=== PATIENT | female | born 1960 | race Caucasian/White ===

== ENCOUNTER 2021-12-07 16:28 | Outpatient (CLI) | payer MEDICARE, SELFPAY ==
--- NOTE | ~2021-12-07 | MM_ITS ---
EXAMINATION: MM screening [facility] BI w marlen HISTORY: Screening TECHNIQUE: Craniocaudal and mediolateral oblique 3-D tomosynthesis images were obtained and synthetic 2-D images were generated. CAD analysis was submitted and interpreted. COMPARISON: Comparison to multiple prior studies sequentially, with oldest reviewed study dated 12/2013. BREAST PARENCHYMAL COMPOSITION: There are scattered areas of fibroglandular density.. FINDINGS: There is no evidence of suspicious mass, calcification, or architectural distortion to sugg est malignancy in either breast. There has been no suspicious interval change. IMPRESSION: 1. No mammographic evidence of malignancy. 2. Recommend routine screening mammography in one year. BI-RADS Category 1: Negative Reviewed, dictated and finalized at location A. L DEL[employer]IVER
== END 2021-12-07 16:29 | disposition home or self-care (01) ==
LOC: ANHIMG 16:29
PROVIDERS: PCP Internal Medicine; Visit Provider Obstetrics & Gynecology
DX: Z12.31 Encounter for screening mammogram for malignant neoplasm of breast (principal)
CPT/HCPCS: 77063; 77067

== ENCOUNTER 2023-08-16 12:17 | Outpatient (CLI) | payer MEDICARE, SELFPAY ==
[2023-08-16 12:52] LABS: Basophils Percent Auto 0.3 % (0.2-1.2); Eosinophils Absolute Auto 0.1 K/mm3 (0-0.3); Eosinophils Percent Auto 0.8 % (0-4.4); Hematocrit 37.7 % (37.0-47.0); Hemoglobin 11.8 g/dL (12.0-15.0); Immature Granulocyte Absolute 0.09 K/mm3 (0.00-0.031); Immature Granulocyte Percent A 0.6 % (0-0.5); Lymphocytes Absolute Auto 1.23 K/mm3 (0.9-3.2); Lymphocytes Percent Auto 7.7 % (18.3-44.2); Mean Corpuscular HGB Conc 31.3 g/dl (32-36); Mean Corpuscular Volume 92.6 fl (80-100); Mean Platelet Volume 10.9 fl (7.4-10.4); Monocytes Absolute Auto 1.1 K/mm3 (0.1-0.6); Monocytes Percent Auto 7.2 % (2.6-8.5); Neutrophils Absolute Auto 13.3 K/mm3 (1.3-6.7); Neutrophils Percent Auto 83.4 % (45.5-73.1); Platelet Count Result 341 k/mm3 (150-375); Red Blood Count 4.07 M/mm3 (4.2-5.4); Red Cell Distribution Width 12.9 % (11.5-14.5); White Blood Count 15.9 K/mm3 (4.5-10.0)
[2023-08-16 13:01] LABS: Alanine Aminotransferase 13 U/L (6-35); Albumin Level 4.2 g/dL (3.5-5.1); Alkaline Phosphatase 91 U/L (38-126); Anion Gap 8 mmol/L (8-16); Aspartate Amino Transferase 16 U/L (14-36); Bilirubin,Total 0.6 mg/dL (0.2-1.3); Blood Urea Nitrogen 21 mg/dL (7-17); Calcium 9.2 mg/dL (8.4-10.2); Carbon Dioxide 30 mmol/L (22-30); Chloride 98 mmol/L (98-107); Estimated Glomerular Filt Rate > 60; Glucose 108 mg/dL (65-110); Sodium 136 mmol/L (137-145)
[2023-08-16 14:10] LABS: Erythrocyte Sedimentation Rate 77 mm/hr (0-20)
== END 2023-08-16 12:18 | disposition home or self-care (01) ==
PROVIDERS: PCP Nurse Practitioner Family; Visit Provider Nurse Practitioner Family
DX: L02.91 Cutaneous abscess, unspecified (principal)
CPT/HCPCS: 36415; 80053; 85025; 85652

== ENCOUNTER → 2024-01-23 11:31 | Outpatient (REF) | payer MEDICARE, SELFPAY | LOC: ANHLAB 11:31 | PROVIDERS: PCP Nurse Practitioner Family; Visit Provider Plastic Surgery | DX: C44.519 Basal cell carcinoma of skin of other part of trunk (principal) | CPT/HCPCS: 88305 ==

== ENCOUNTER 2024-03-09 15:14 | Emergency (ER) | payer MEDICARE, SELFPAY ==
--- NOTE | ~2024-03-09 | XR_ITS ---
EXAMINATION: XR chest 2V 03/09/2024 15:46 INDICATION: Productive cough PROCEDURE: 2 view chest COMPARISON: 09/20/2013 FINDINGS: The lungs are clear. The cardiomediastinal silhouette is within normal limits. There are no pleural effusions. There is no pneumothorax suspected. IMPRESSION: 1: NO ACUTE CARDIOPULMONARY DISEASE. Reviewed, dictated and finalized at location B.
--- NOTE | 2024-03-09 15:21 | ED.URI ---
HPI - URI/Sore Throat General Chief Complaint: Upper Respiratory Infection Stated Complaint: Sore Throat and Cough Time Seen by Provider: 03/09/24 15:24 Source: patient, RN notes reviewed and old records reviewed Mode of arrival: ambulatory Limitations: no limitations History of Present Illness HPI Narrative: 63-year-old female presents to the [facility] with a 4 day history of sore throat, cough and ear pressure. Had a negative strep in her primary care's office yesterday. Has been taking Mucinex per primary care. Patient reports she is concern for pneumonia. Reports a productive cough. Denies fevers, chest pain Related Data Home Medications Medication Instructions Recorded Confirmed cholecalciferol (vitamin D3) 25 25 mcg PO DAILY 04/26/21 03/09/24 mcg (1,000 unit) tablet Allergies Allergy/AdvReac Type Severity Reaction Status Date / Time latex Allergy Unknown Hives Verified 03/09/24 15:26 Review of Systems Review of Systems: All systems reviewed & are unremarkable except as noted in HPI and below Constitutional: Constitutional: Reports no additional constitutional complaints Eyes: Eyes: Reports no additional eye complaints ENT: Reports as per HPI and Reports sore throat Cardiovascular: Cardiovascular: Reports no additional cardiovascular complaints, Denies chest pain and Denies dyspnea Respiratory: Respiratory: Reports as per HPI, Denies chest congestion, Reports cough and Denies dyspnea Gastrointestinal: Gastrointestinal: Reports no additional gastrointestinal complaints, Denies abdominal pain, Denies nausea and Denies vomiting Musculoskeletal: Musculoskeletal: Reports no additional musculoskeletal complaints Integumentary/Breasts: Skin/Breast: Reports system reviewed and no additional complaints, except as docu Neurologic: Reports system reviewed and no additional complaints, except as documented Psychiatric: Psychiatric: Reports no additional psychiatric complaints Allergic/Immunologic: Allergic/Immunologic: Reports no additional allergic/immunologic complaints [facility] Past Medical History Medical History Acid reflux Asthma Basal cell carcinoma Hypertension Hypothyroidism Migraines occasional Vaginal delivery x2 Surgical History Surgical History History of back surgery x2, back fusion S/P laparoscopic surgery [place] teeth extracted Family History Family History Mother Hypertension Family history of osteoarthritis Family history of diabetes mellitus in first degree relative Diabetes mellitus Sibling Family history of diabetes mellitus in first degree relative Father Family history of lung cancer Grandparent Family history of malignant neoplasm of breast Social History Social History Smoking status: Never smoker Second hand tobacco smoke exposure: Yes Alcohol intake: never Substance use: never Substance use type: does not use Lack of Transportation: No Lack of Food: Never True Current Housing: I Have Housing Concerned About Future Housing: No Difficulty Paying Gas/Electric Bills: No Difficulty Paying for Meds: No Currently Unemployed: No Education: High School Diploma/GED Difficulty w/ Childcare or Family Care: No Comments At the time of my signature, I reviewed and agree with the nursing past medical, surgical, social, and family history. There is no relevant family history pertinent to the patient complaint. Exam Const: General: cooperative, healthy appearing, comfortable, no acute distress, well developed, alert and well nourished Nutritional Appearance: well nourished and obese Orientation/consciousness: patient oriented x3 Limitations: no limitations HENMT: Head: normal to inspection Ears: hearing grossly normal
[2024-03-09 15:28] VITALS: BP 141/64; PULSE 76; RESP 16; TEMP 36.9; O2SAT 99
== END 2024-03-09 16:25 | disposition home or self-care (01) ==
PROVIDERS: Emergency Provider Nurse Practitioner; PCP Nurse Practitioner Family
DX: J06.9 Acute upper respiratory infection, unspecified (principal); J02.9 Acute pharyngitis, unspecified; R09.82 Postnasal drip; K21.9 Gastro-esophageal reflux disease without esophagitis; J45.909 Unspecified asthma, uncomplicated; I10 Essential (primary) hypertension; E03.9 Hypothyroidism, unspecified; Z85.828 Personal history of other malignant neoplasm of skin
CPT/HCPCS: 71046; 99213; G0463

== ENCOUNTER 2024-04-29 11:08 | Outpatient (CLI) | payer MEDICARE, SELFPAY ==
--- NOTE | 2024-04-29 11:29 | ECG_ITS ---
Test Date: 2024-04-29 11:44:51 Measurements Intervals [place] Rate: 63 P: 34 MA: 162 QRS: -3 QRSD: 97 T: -2 QT: 407 QTc: 418 Interpretive Statements SINUS RHYTHM VOLTAGE CRITERIA FOR LVH POOR R WAVE PROGRESSION , CONSIDER ANTERIOR INFARCTION BORDERLINE T WAVE ABNORMALITY- ANT/INF LEADS BASELINE ARTIFACT- I, II, III, AVR, AVL, AVF ABNORMAL ECG No previous ECG available for comparison Electronically Signed On 04-29-2024 11:59:07 CDT by Jcarlos Wood D.O.
[2024-04-29 12:33] LABS: Anion Gap 7 mmol/L (4-12); Blood Urea Nitrogen 22 mg/dL (7-17); Carbon Dioxide 31 mmol/L (22-30); Chloride 100 mmol/L (98-107); Estimated Glomerular Filt Rate > 60; Glucose 98 mg/dL (65-110); Potassium 4.1 mmol/L (3.4-5.0); Sodium 138 mmol/L (137-145)
== END 2024-04-29 11:09 | disposition home or self-care (01) ==
LOC: ANHSURGERY 11:15
PROVIDERS: Anesthesiology; PCP Nurse Practitioner Family; Visit Provider Plastic Surgery
DX: Z01.818 Encounter for other preprocedural examination (principal); Z79.899 Other long term (current) drug therapy; I10 Essential (primary) hypertension
CPT/HCPCS: 36415; 80048; 93005

== ENCOUNTER 2024-05-01 00:25 | Day surgery (SDC) | payer MEDICARE, SELFPAY ==
[2024-04-29 08:30] VITALS: BMI 41.5
--- NOTE | 2024-04-29 08:37 | PC.NURSE ---
Report to the Outpatient Waiting Room, entrance under the green pavilion located off [facility], at time _0615_ on date _[id number]_. Planned Procedure Time: _0815_. Time changes happen often and if your time is changed the preop area will call you the afternoon before. - You and your visitor will be asked to self-screen and do not enter if you have any COVID symptoms. - A mask is optional within the hospital at this time. - No food or drink from midnight until time of surgery Take the following medications with a SIP of water the morning of surgery: ___Levothyroxine. May use Sympicort and Flonase if needed. DO NOT STOP ANY OF YOUR OTHER PRESCRIPTION MEDICATIONS PRIOR TO SURGERY ?EXCEPT THE FOLLOWING Medications to discontinue per physician Vitamin D3 Date to take last dose____Stop now. Please no make-up, nail lithuanian, hairspray, perfume, deodorant, or body powder the day of surgery. No jewelry (including any body piercings) or valuables the day of surgery, leave them at home. Please take a shower or bath the night before, or the morning of, surgery with an antibacterial soap. Wear comfortable, loose fitting clothing. - Jewelry must be removed prior to entering the operating room. Rings and piercings that are not removed may be cut off. - The hospital will not accept responsibility for valuables. - Please leave all valuables, including medications, at home the day of surgery. If you are going home after surgery, a licensed driver manager must drive you home. - NO public transportation without another adult if you receive anesthesia. - We recommend that an adult stay with you for 24 hours following discharge. - We also recommend that you do not drive, make important decision, drink alcoholic beverages, or take any drugs that were not prescribed by your health care provider for at least 24 hours after your discharge time. Follow any additional instructions given to you from your surgeon. If you or anyone in your household have experienced Covid symptoms in the past week, please notify your surgeon or the nurse liaison at the phone number below for possible testing. Telephone instructions given to __Leeanna___and asked if any additional questions and then verbalized understanding. Patient advised to call surgeon office or pre surgery nurse liaison [phone] if any additional questions.
[2024-05-01 06:23] VITALS: BP 113/82; PULSE 80; RESP 16; TEMP 36.2; O2SAT 98; BMI 42.4
--- NOTE | 2024-05-01 06:40 | WPDHPUPDATE1 ---
History and Physical Update Update Date/Time: 05/01/24 06:40 Patient seen and examined in pre-operative holding area. No interval change in medical history or symptoms. Patient recalls previous discussion of benefits and alternatives to procedure. Continues to desire to proceed with excision of malignant lesion of trunk with frozen section, complex wound closure with possible adjacent tissue transfer. Reviewed procedure, post-op expectations and risks including but not limited to bleeding, infection, incomplete excision ,recurrence,undesireable cosmetic appearance, no change or worsening of symptoms. I discussed the possible use of assistants and their participation in the case. Patient stated understanding and signed the consent form wishing to proceed.
--- NOTE | 2024-05-01 06:40 | W.PM.PROC2 ---
Procedure Note - Detailed Date of Procedure 05/01/24 Pre-op Diagnosis basal cell carcinoma of skin Post-op Diagnosis Same Procedure Performed re-excision sternal basal cell Surgeon Kiara Salvador MD Informatics Manager estevan mcgarry pa-c Anesthesia MAC Description of Procedure INFORMED CONSENT: The patient was seen and examined and marked in the pre-op area.? The patient signed the consent form. PROCEDURE IN DETAIL:The patient taken back to OR on the stretcher in supine position. Time out performed with anesthesia, surgeon and staff agreeing on patient's name site and surgery to be performed SCDs were placed on the lower extremities and inflated. After anesthesia administered sedation I injected {20}cc 1%lido with epi and 0.5% marcaine plain at the operative site The chest was prepped and draped in sterile fashion I proceeded with making an incision around her previous scar and excision site with 6mm margins through skin and dermis then excising in subuctaneous plane with bovie cautery. This specimen was sent for permanent pathology. I took superior, inferior, left and right margins that were sent for frozen section. The diameter of excision with margins and resulting defect was [id number]. This defect extended onto and over bilateral breasts with exposed breast tissue. Primary closure would have resulted in synmastia and excess tension on the wound from pull of the breasts laterally. I irrigated with normal saline and hemostasis with bovie. When frozen sections were reported as clear, I proceeded with using bovie cautery to elevate full thickness skin flaps on the left and right side of the wound so this tissue would slide over the breast tissue creating bilateral advancement flaps. I sharply excised burrows triangles superiorly and inferiorly to remove dog ears and allow for advancement. These full thickness skin flaps were advanced and sutured down to sternum with 2-0 vicryl suture and thus recreating and sternal cleft between breasts. 2-0 vicryl was used for deep and dermal closure. 3-0 monocryl was used for subcuticular closure. The skin flaps appeared viable with good cap refill. A dressing of mastisol, steri-strips, 4x4, and a pressure dressing was applied. The patient was then awaken from anesthesia and transferred to the recovery room in stable condition.? Complications - none EBL- 2cc Disposition - home in stable conditions [facility] Billing Surgery - Charge Forward: Surgery Billing ([id number] [id number]) [id number] same for estevan modifier )
[2024-05-01] MEDS: LACTATED RINGERS 1,000 ML 30 ML IV CONT ×2 (07:05→09:58)
--- NOTE | 2024-05-01 07:40 | WPDANESEPPF ---
Anes - Initial Pre Proc Eval Procedure: Operation Date: 05/01/24 08:15 Proposed Procedures p Excision Malignant Lesion of Trunk with Frozen Section, Complex Wound Closure with Possible Adjacent Tissue Transfer - Kiara Salvador MD Date/Time: 05/01/24 07:40 Surgeon: Kiara Salvador MD Pre Op Diagnosis: basal cell carcinoma of skin Patient Data Age: 63 Gender: F Height: 1.7 m Weight: 122.8 kg Allergies Allergy/AdvReac Type Severity Reaction Status Date / Time latex Allergy Unknown Hives Verified 04/29/24 10:38 Home Medications Medication Instructions Recorded Confirmed Type cholecalciferol (vitamin D3) 25 25 mcg PO DAILY 04/26/21 04/29/24 History mcg (1,000 unit) tablet ibuprofen 800 mg tablet 800 mg PO TID PRN pain #90 tabs 05/19/22 04/29/24 Rx cyclobenzaprine 10 mg tablet 10 mg PO TID PRN muscle spasm #60 06/30/23 04/29/24 Rx tabs levothyroxine 75 mcg tablet See Rx Instructions .Route 09/13/23 04/29/24 Rx .COMPLEX #90 tabs losartan 50 mg-hydrochlorothiazide 1 tablet PO DAILY #90 tabs 09/13/23 04/29/24 Rx 12.5 mg tablet omeprazole 40 mg capsule,delayed See Rx Instructions .Route 03/05/24 04/29/24 Rx release .COMPLEX #90 caps dextromethorphan-guaifenesin 30 See Rx Instructions PO Q12H PRN 03/07/24 04/29/24 Rx mg-600 mg tablet extended cough #30 tabs [id number] hr (Mucinex DM) fluticasone propionate 50 2 spray intranasal DAILY PRN nasal 03/07/24 04/29/24 Rx mcg/actuation nasal congestion #16 grams spray,suspension (Allergy Relief (fluticasone)) budesonide-formoterol HFA 160 2 puff inhalation Q12H PRN Dyspnea 04/29/24 04/29/24 History mcg-4.5 mcg/actuation aerosol inhaler (Symbicort) Patient hx anesthesia problems: none Family hx anesthesia problems: none Results Review: All pre-operative results and documents have been reviewed as part of the pre-operative evaluation. [facility] Past Medical History Medical History Acid reflux Asthma Basal cell carcinoma Hypertension Hypothyroidism Migraines occasional Vaginal delivery x2 Surgical History Surgical History History of back surgery x2, back fusion S/P laparoscopic surgery [place] teeth extracted Family History Family History Mother Hypertension Family history of osteoarthritis Family history of diabetes mellitus in first degree relative Diabetes mellitus Sibling Family history of diabetes mellitus in first degree relative Father Family history of lung cancer Grandparent Family history of malignant neoplasm of breast Social History Social History Smoking status: Never smoker Second hand tobacco smoke exposure: Yes Alcohol intake: never Substance use: never Substance use type: does not use Lack of Transportation: No Lack of Food: Never True Current Housing: I Have Housing Concerned About Future Housing: No Difficulty Paying Gas/Electric Bills: No Difficulty Paying for Meds: No Currently Unemployed: No Education: High School Diploma/GED Difficulty w/ Childcare or Family Care: No Living arrangements: with family Spiritual care concerns: No Anes - Eval Final PreProcedure Day of Procedure 05/01/24 07:40 Patient weight: morbidly obese Heart: regular rate and rhythm Lungs: clear to auscultation Airway: Mallampati scale class II Neurological: alert and oriented Last oral intake: >/= 8 hours ASA classification: III Emergent: no Anesthetic plan: proceed Anesthesia type and monitoring: general LMA and standard monitoring Results Review: All pre-operative results and documents have been reviewed as part of the pre-operative evaluation. Informed Consent: The patient's anesthetic plan and its attendant risks and benefits were disc
[2024-05-01] MEDS: ceFAZolin 3 GM/D5W 100 ML 100 ML IVPB (08:07)
[2024-05-01] MEDS: LIDO 1%/EPINEPHRINE 1:100,000 50 ML VIAL 10 ML INFILTRATE (08:11)
--- NOTE | 2024-05-01 08:26 | SUR.OPER ---
Specimen's handed to myself, Erich Rao RN by Kiara Roman. DESIREE Ratliff delivered specimens to pathology lab. Received by GREGG at [id number]
[2024-05-01 09:09] VITALS: BP 123/99; PULSE 68; RESP 16; O2SAT 99
[2024-05-01] MEDS: fentaNYL CITRATE INJ (*CRX) 100 MCG/2 ML VIAL 25 MCG IV PUSH ×4 (09:14→09:51)
[2024-05-01 09:35] VITALS: BP 119/79; PULSE 58; RESP 16
[2024-05-01] MEDS: oxyCODONE HCL (*CRX) 5 MG TAB IR PO (09:51)
[2024-05-01] MEDS: ONDANSETRON INJ 4 MG/2 ML VIAL IV PUSH (09:52)
[2024-05-01 10:05] VITALS: BP 130/89; PULSE 58; RESP 16
== END 2024-05-01 10:40 | disposition home or self-care (01) ==
PROVIDERS: PCP Nurse Practitioner Family; Visit Provider Plastic Surgery
PROC: (CPT 14301; principal; 2024-05-01 08:15)
DX: C44.519 Basal cell carcinoma of skin of other part of trunk (principal); J45.909 Unspecified asthma, uncomplicated; I10 Essential (primary) hypertension; E03.9 Hypothyroidism, unspecified; K21.9 Gastro-esophageal reflux disease without esophagitis; Z79.51 Long term (current) use of inhaled steroids; Z98.1 Arthrodesis status; E66.01 Morbid (severe) obesity due to excess calories; Z68.41 Body mass index [BMI] 40.0-44.9, adult
CPT/HCPCS: 14301; 14302; 36415; 80048; 88304; 88305; 88331; 93005; A9270; J0690; J2405; J2704; J3010; J7120